=== PATIENT | female | born 1970 | race Caucasian/White ===

== ENCOUNTER 2016-10-02 14:30 | Outpatient (CLI) | payer BC ==
--- NOTE | 2016-10-02 15:34 | Ultrasound Report ---
ULTRASOUND RIGHT FOREARM: 10/02/2016 CLINICAL INDICATION: Palpable abnormality, family history of sarcoma. TECHNIQUE: Real-time scanning was performed with termite control representative static images obtained. FINDINGS: Ultrasound of the right forearm palpable abnormality was performed. At this site, there i s a 1.0 x 0.8 x 0.4 cm lipoma. No sonographically suspicious findings are identified. IMPRESSION: LIPOMA ACCOUNTING FOR THE PALPABLE ABNORMALITY. JOB #: [id number] EXT JOB #:[id number]
== END 2016-10-02 14:31 | disposition home or self-care (01) ==
LOC: DI 14:30
PROVIDERS: ATTEND Physician Assistant Medical
DX: D17.21 Benign lipomatous neoplasm of skin and subcutaneous tissue of right arm (principal)
CPT/HCPCS: 76882

== ENCOUNTER 2016-10-17 12:15 | Outpatient (CLI) | payer BC | END 2016-10-17 12:16 | disposition home or self-care (01) | LOC: LAB.WCP 12:15 | PROVIDERS: ATTEND Family Medicine | DX: R31.9 Hematuria, unspecified (principal) | CPT/HCPCS: 87086 ==

== ENCOUNTER 2018-08-16 09:41 | Outpatient (CLI) | payer BC ==
--- NOTE | 2018-08-16 12:51 | Mammography Report ---
Reason: SCREENING MAMMO Procedure Date: 08/16/2018 Accession Number: [id number] / [id number] Procedure: [facility] - Screening Mammo Dig Bilat CPT Code: FULL RESULT: EXAM: Screening Mammo Dig Bilat DATE: 08/16/2018 10:01 AM CLINICAL HISTORY: Screening encounter. No reported risk factors. TECHNIQUE: (B) - Bilateral CC, laterally exaggerated CC, MLO views were obtained. COMPARISON: 08/31/2014 and 05/19/2012. PARENCHYMAL PATTERN: (A) - The breast(s) demonstrate(s) scattered fibroglandular densities. FINDINGS: In the upper outer right breast in the axillary tail is a focal asymmetry which is increasing in prominence, possibly a partially obscured increasing hyperdense nodule which requires additional imaging including spot views and 3-D mammography for clarification, 10 cm from the nipple. There are no suspicious masses, calcifications, or areas of distortion in the left breast. IMPRESSION: Incomplete examination. BI-RADS category 0. RECOMMENDATION: (ADDMAM) - Recommend additional mammographic views. Spot imaging with 3-D imaging of the right breast possibly with additional ultrasound. BI-RADS CATEGORY: (0) - Incomplete Examination - need additional evaluation. STANDARD QUALIFYING STATEMENTS: 1. This examination was not reviewed with the aid of Computer-Aided Detection (CAD). 2. A negative or benign imaging report should not preclude biopsy if clinically suspicious findings are present. 3. Dense breasts may obscure an underlying neoplasm. 4. This examination was reviewed without the aid of 3D breast imaging (tomosynthesis).
== END 2018-08-16 09:42 | disposition home or self-care (01) ==
LOC: DI.N 09:41
DX: Z12.31 Encounter for screening mammogram for malignant neoplasm of breast (principal)
CPT/HCPCS: 77067

== ENCOUNTER 2018-08-23 08:55 | Outpatient (CLI) | payer BC ==
--- NOTE | 2018-08-23 12:19 | Mammography Report ---
Reason: ABNORMAL MAMMOGRAM Procedure Date: 08/23/2018 Accession Number: [id number] / [id number] Procedure: [facility] - Diag Special Views Dig RT CPT Code: FULL RESULT: EXAM: Diag Special Views Dig RT, Breast Unilateral Limited DATE: 08/23/2018 9:49 AM CLINICAL HISTORY: Follow-up abnormal mammogram of 08/16/2018 TECHNIQUE: (R) - Right spot compression and true lateral views were obtained. Targeted ultrasound was performed of the right breast in the area of clinical concern upper outer quadrant. ?Color Doppler was employed. ? COMPARISON: 08/16/2018 RIGHT ADDITIONAL VIEWS: FINDINGS: The area of asymmetric increased right upper outer quadrant density persists on additional views. RIGHT BREAST ULTRASOUND: FINDINGS: Corresponding to the mammographic abnormality 11:00 position 7 cm from the nipple is a solid 2.2 x 1.5 x 1.8 cm complex avascular solid mass. Additional note made of several prominent right axillary lymph nodes, the largest 2 x 1.5 x 1.5 cm. IMPRESSION: Suspicious. RECOMMENDATION: (BIOPSY) - Ultrasound-guided core biopsy of the right breast mass and FNA of the largest right axillary lymph node is suggested. BI-RADS CATEGORY: (4) - Suspicious. STANDARD QUALIFYING STATEMENTS: 1. This examination was not reviewed with the aid of Computer-Aided Detection (CAD). 2. A negative or benign imaging report should not preclude biopsy if clinically suspicious findings are present. 3. Dense breasts may obscure an underlying neoplasm. 4. This examination was reviewed with the aid of 3D breast imaging (tomosynthesis). CRITICAL RESULT: The findings were discussed with KELLEE BLAKELY on 08/23/2018 11 AM.. . Patient is scheduled for ultrasound-guided biopsy 08/30/2018.
== END 2018-08-23 08:56 | disposition home or self-care (01) ==
LOC: DI 08:55
PROVIDERS: ATTEND Family Medicine
DX: R92.8 Other abnormal and inconclusive findings on diagnostic imaging of breast (principal); N63.11 Unspecified lump in the right breast, upper outer quadrant
CPT/HCPCS: 76642

== ENCOUNTER 2018-08-30 09:55 | Outpatient (CLI) | payer BC ==
[2018-08-30] MEDS ORDERED: BUFFERED LIDOCAINE 10 ML SYRINGE ONE (10:30)
[2018-08-30] MEDS ORDERED: BUPIVACAINE 0.5%-EPI 1:200000 PF 10 ML VIAL ONE (10:30)
--- NOTE | 2018-08-30 14:50 | Ultrasound Report ---
Reason: ABN MAMMO - ENL LYM NODE, RT BREAST MASS Procedure Date: 08/30/2018 Accession Number: [id number] / [id number] Procedure: US - Biopsy Breast Core CPT Code: FULL RESULT: PROCEDURE: Ultrasound-guided needle biopsy right breast mass. CLINICAL DATA: Targeted mass measuring 2.2 cm with irregular margins in the 11 o'clock axis of the right breast. Additional targeted mass in the right axilla, appearance of lymphadenopathy. Informed consent was obtained. Using standard aseptic technique, both 1% buffered lidocaine and Sensorcaine were injected into the right breast for local anesthesia. A small gee was made in the skin with a #11 blade. A 12-gauge 4Soilsero vacuum-assisted device was used to obtain 3 specimens. The same procedure was repeated for the suspicious appearing right axillary lymph node. A specialized biopsy marker clip was placed into the biopsy cavity under ultrasound guidance this was also performed for the axillary biopsy site. The patient was taken to separate mammography machine and a two-view digital mammography was performed to verify the clip placement and any complications. The mammography showed concordant clip placement. The wound was dressed and ice applied. The patient was observed for approximately 15 minutes, then was discharged from diagnostic imaging Department in good condition following instructions on wound care and obtaining biopsy results. The patient is scheduled to receive the biopsy results from the referring physician. The tissue was sent for histologic analysis. IMPRESSION: Ultrasound-guided biopsy of the right breast and right axillary lymphadenopathy. AN ADDENDUM WILL BE MADE TO THIS REPORT WHEN PATHOLOGY IS REVIEWED TO ESTABLISH CONCORDANCE.
[2018-08-30] MEDS ORDERED: BUPIVACAINE 0.5%-EPI 1:200000 PF 10 ML VIAL SUBQ ONE (16:35)
[2018-08-30] MEDS ORDERED: BUFFERED LIDOCAINE 10 ML SYRINGE IU ONE (16:35)
== END 2018-08-30 09:56 | disposition home or self-care (01) ==
LOC: DI 09:55
PROVIDERS: ATTEND Family Medicine
DX: C50.411 Malignant neoplasm of upper-outer quadrant of right female breast (principal); C77.3 Secondary and unspecified malignant neoplasm of axilla and upper limb lymph nodes; Z17.1 Estrogen receptor negative status [ER-]
CPT/HCPCS: 19083; 38505